=== PATIENT | male | born 1955 | race Caucasian/White ===

== ENCOUNTER 2018-05-07 13:38 | Day surgery (SDC) | payer BC, MEDICARE ==
[2018-05-04 11:45] LABS: EOSINOPHILS # (AUTO) 0.3 X10'3 (0-0.9); EOSINOPHILS % (AUTO) 6.3 % (0-6); HEMATOCRIT 43.5 % (42.0-52.0); HEMOGLOBIN 14.9 g/dl (14.0-17.9); LYMPHOCYTES # (AUTO) 1.2 X10'3 (1.1-4.8); LYMPHOCYTES % (AUTO) 26.1 % (21-51); MEAN CORPUSCULAR HEMOGLOBIN 33.6 PG (27.0-31.0); MEAN CORPUSCULAR HGB CONC 34.3 % (33.0-36.5); MEAN CORPUSCULAR VOLUME 97.9 FL (78-98); MEAN PLATELET VOLUME 7.3 FL (7.4-10.4); MONOCYTES # (AUTO) 0.5 X10'3 (0-0.9); MONOCYTES % (AUTO) 10.4 % (2-12); NEUTROPHILS # (AUTO) 2.6 X10'3 (1.8-7.7); NEUTROPHILS % (AUTO) 56.2 % (42-75); PLATELET COUNT 216 X10'3 (140-440); RED BLOOD COUNT 4.44 X10'6 (4.70-6.10); RED CELL DISTRIBUTION WIDTH 13.5 % (11.5-14.5); WHITE BLOOD COUNT 4.6 X10'3 (4.5-11.0)
[2018-05-04 12:04] LABS: INR 1.2 INR; PROTHROMBIN TIME 11.7 SECONDS (9.0-12.0)
[2018-05-04 12:05] LABS: PARTIAL THROMBOPLASTIN TIME 31 SECONDS (22-32)
[2018-05-04 12:25] LABS: ALBUMIN 3.8 G/DL (3.4-5.0); ANION GAP 11 (8-16); BLOOD UREA NITROGEN 14 MG/DL (7-18); BUN/CREATININE RATIO 16.1 (5.4-32.0); CHLORIDE 104 MMOL/L (99-107); CREATININE 0.87 MG/DL (0.60-1.10); GLUCOSE 100 MG/DL (70-104); POTASSIUM 4.4 MMOL/L (3.5-5.1); SODIUM 138 MMOL/L (135-145); TOTAL CARBON DIOXIDE 22.8 MMOL/L (24-32); eGFR 89 ML/MIN
[~2018-05-07] VITALS: Ht 188 cm; Wt 177.0 kg
[2018-05-07] VITALS (8 sets, daily range): BP systolic 119–148; BP diastolic 62–93
[2018-05-07] MEDS ORDERED: normal saline 1000ml 1,000 ML IV SCH (13:55)
[2018-05-07] MEDS ORDERED: LORazepam 0.5 MG tablet PO PRN (13:55)
[2018-05-07] MEDS ORDERED: diphenhydrAMINE 25mg capsule PO PRN (13:55)
[2018-05-07] MEDS ORDERED: LIDOcaine/PRILOcaine 5gm cream TP ONE (13:55)
[2018-05-07] MEDS ORDERED: ATOR40TA PO (14:19)
[2018-05-07] MEDS ORDERED: ALBU18HF2 INH (14:19)
[2018-05-07] MEDS ORDERED: LISI40TA4 PO (14:19)
[2018-05-07] MEDS ORDERED: SOTA80TA73 PO (14:19)
[2018-05-07] MEDS ORDERED: RIVA20TA PO (14:19)
[2018-05-07] MEDS ORDERED: OMEG1CAP2 (14:19)
[2018-05-07] MEDS ORDERED: TRAM50TA2 PO (14:19)
[2018-05-07] MEDS ORDERED: FLO0.4C PO (14:19)
[2018-05-07] MEDS ORDERED: AMLO10TA13 PO (14:19)
[2018-05-07] MEDS ORDERED: MULT-1172 (14:19)
[2018-05-07] MEDS ORDERED: BACL10TA2 PO (14:19)
[2018-05-07] MEDS ORDERED: GABA-530 PO (14:19)
[2018-05-07] MEDS ORDERED: TIOT4MIS3 (14:19)
[2018-05-07] MEDS ORDERED: LEVO150T8 PO (14:19)
[2018-05-07] MEDS ORDERED: midazolam 2 mg/2 ml injection ONE (17:04)
[2018-05-07] MEDS ORDERED: LIDOcaine 1% (10mg/ml)w/preservative injection 20ml MDV ONE (17:04)
[2018-05-07] MEDS ORDERED: fentaNYL/PF 50MCG/1 ML 2ML syringe ONE (17:04)
[2018-05-07] MEDS ORDERED: iohexol 350MG/ML 100ml bottle IV ONE (17:04)
[2018-05-07] MEDS ORDERED: verapamil 2.5 mg/ml inj IV ONE (17:09)
[2018-05-07] MEDS ORDERED: heparin 1,000unit/ml 10ml vial 10 ML ONE (17:10)
[2018-05-07] MEDS ORDERED: nitroGLYCERIN-Tridil 50MG/D5W 250 ML IV ONE (17:11)
[2018-05-07] MEDS ORDERED: HYDROcodone/acetaminophen 5mg/325mg tablet PO PRN (18:20)
[2018-05-07] MEDS ORDERED: HYDROcodone/acetaminophen 10/325mg tab PO PRN (18:20)
== END 2018-05-07 19:50 | disposition home or self-care (01) ==
LOC: SSTAY O 13:38
PROVIDERS: ATTEND Internal Medicine Interventional Cardiology
DX: I25.10 Atherosclerotic heart disease of native coronary artery without angina pectoris (principal); I10 Essential (primary) hypertension; G47.33 Obstructive sleep apnea (adult) (pediatric); I48.91 Unspecified atrial fibrillation; E66.9 Obesity, unspecified; E03.9 Hypothyroidism, unspecified; E78.5 Hyperlipidemia, unspecified; J44.9 Chronic obstructive pulmonary disease, unspecified; Z86.69 Personal history of other diseases of the nervous system and sense organs; Z86.73 Personal history of transient ischemic attack (TIA), and cerebral infarction without residual deficits; Z87.891 Personal history of nicotine dependence; Z68.43 Body mass index [BMI] 50.0-59.9, adult; Z96.641 Presence of right artificial hip joint; Z96.651 Presence of right artificial knee joint; Z79.891 Long term (current) use of opiate analgesic; Z79.899 Other long term (current) drug therapy; Z98.890 Other specified postprocedural states
CPT/HCPCS: 36415; 80048; 85025; 85610; 85730; 93005; 93458; 99152; A6257; J1644; J2001; J2250; J3010; J7030; Q0163; Q9967; A4620; C1769; J3490

== ENCOUNTER 2019-01-04 06:51 | Day surgery (SDC) | payer BC, MEDICARE ==
[2019-01-01 16:10] LABS: BASOPHILS # (AUTO) 0.1 X10'3 (0-0.2); EOSINOPHILS # (AUTO) 0.2 X10'3 (0-0.9); EOSINOPHILS % (AUTO) 3.1 % (0-6); LYMPHOCYTES # (AUTO) 1.3 X10'3 (1.1-4.8); LYMPHOCYTES % (AUTO) 21.2 % (21-51); MEAN CORPUSCULAR HEMOGLOBIN 33.5 PG (27.0-31.0); MEAN CORPUSCULAR VOLUME 98.7 FL (78-98); MEAN PLATELET VOLUME 7.3 FL (7.4-10.4); MONOCYTES # (AUTO) 0.7 X10'3 (0-0.9); MONOCYTES % (AUTO) 10.7 % (2-12); NEUTROPHILS # (AUTO) 4.1 X10'3 (1.8-7.7); PRE OP HEMATOCRIT 43.6 % (42.0-52.0); PRE OP HEMOGLOBIN 14.8 g/dL (14.0-17.9); PRE OP PLATELET COUNT 220 X10'3 (140-440); RED BLOOD COUNT 4.41 X10'6 (4.70-6.10); RED CELL DISTRIBUTION WIDTH 13.7 % (11.5-14.5)
[2019-01-01 16:26] LABS: PRE OP PROTIME 10.9 SECONDS (9.0-12.0)
[2019-01-01 16:40] LABS: ALBUMIN 3.8 G/DL (3.4-5.0); ALBUMIN/GLOBULIN RATIO 1.1 (1.1-1.5); ALKALINE PHOSPHATASE 48 IU/L (46-116); BLOOD UREA NITROGEN 18 MG/DL (7-18); CALCIUM 9.3 MG/DL (8.5-10.1); CHLORIDE 106 MMOL/L (99-107); PRE OP ALT 70 U/L (30-65); PRE OP ANION GAP 12 (8-16); PRE OP AST 30 U/L (10-37); PRE OP BILIRUB, TOTAL 0.4 MG/DL (0.0-1.0); PRE OP GLUCOSE 96 MG/DL (70-104); PRE OP POTASSIUM 4.4 MMOL/L (3.4-5.1); PRE OP SODIUM 142 MMOL/L (135-145); TOTAL CARBON DIOXIDE 23.9 MMOL/L (24-32); TOTAL PROTEIN 7.3 G/DL (6.4-8.2); eGFR 85 ML/MIN
[2019-01-04] VITALS (7 sets, daily range): BP systolic 111–134; BP diastolic 65–81
[~2019-01-04] VITALS: Ht 193 cm; Wt 183.0 kg
[~2019-01-04 06:51] MED LIST: ALBU18HF2 INH; AMLO10TA13 PO; ATOR40TA PO; BACL10TA2 PO; BUPIVAcaine/PF 2.5mg/ml (0.25%) 10ml vial ONE; DOCUMENT DATE & TIME OF BETA-BLOCKER PO ONE; ENOX80SY7 SUBCUT; FLO0.4C PO; GABA-530 PO; LEVO175T7 PO; LISI40TA4 PO; MULT-1172; OMEG1CAP2; RIVA20TA PO; SOTA80TA73 PO; TIOT4MIS3; TRAM50TA2 PO; ceFAZolin 1GM/D5W- ADD-VANTAGE 50 ML IV ONE; cefazolin/dext.iso 2gm/50ml 50 ML IV ONE; famotidine 20mg tablet PO ONE; ringers solution, lacted 1,000 ML IV SCH
[2019-01-04] MEDS ORDERED: LIDOcaine 1% (10mg/ml) 2ml vial ONE (07:24)
[2019-01-04] MEDS ORDERED: LIDOcaine 0.5% (5mg/ml) 50ml vial ONE (07:48)
[2019-01-04] MEDS ORDERED: midazolam 2 mg/2 ml injection ONE ×2 (09:49→10:02)
[2019-01-04] MEDS ORDERED: fentaNYL/PF 50MCG/1 ML 2ML syringe ONE (09:49)
--- NOTE | 2019-01-04 10:15 | NUR ---
Received from OR via BED, accompanied by Anesthesiologist DR KEY and report given by Anesthesiolgist. PATIENT A&OX4, DENIES PAIN, V/S WNL, NEUROVASCULAR CHECKS INTACT, 20G PIV RUE, SCD ON, DRESSING TO LEFT THUMB CDI ELEVATED WITH ICEBAG APPLIED.
--- NOTE | 2019-01-04 10:55 | NUR ---
PATIENT A&OX4, DENIES PAIN, V/S WNL, NEUROVASCULAR CHECKS INTACT, 20G PIV RUE D/C, SCD OFF, DRESSING TO LEFT THUMB CDI ELEVATED WITH ICEBAG APPLIED. I HAVE REVIEWED D/C INSTRUCTIONS WITH PATIENT AND FAMILY AND THEY HAVE VERBALIZED UNDERSTANDING. PATIENT D/C HOME WITH ALL BELONGINGS AND FAMILY GAVE TRANSPORT HOME.
== END 2019-01-04 10:55 | disposition home or self-care (01) ==
LOC: PAS 06:51
PROVIDERS: ATTEND Orthopaedic Surgery Hand Surgery
DX: D17.39 Benign lipomatous neoplasm of skin and subcutaneous tissue of other sites (principal); I10 Essential (primary) hypertension; I48.91 Unspecified atrial fibrillation; M19.90 Unspecified osteoarthritis, unspecified site; J44.9 Chronic obstructive pulmonary disease, unspecified; E66.9 Obesity, unspecified; Z68.43 Body mass index [BMI] 50.0-59.9, adult; Z87.891 Personal history of nicotine dependence; Z86.73 Personal history of transient ischemic attack (TIA), and cerebral infarction without residual deficits; Z98.890 Other specified postprocedural states; Z79.899 Other long term (current) drug therapy; Z72.89 Other problems related to lifestyle
CPT/HCPCS: 26111; 36415; 80053; 82948; 85025; 85610; 85730; 93005; J0690; J2001; J2250; J3010; J3490; J7120; A4215; A7000

== ENCOUNTER 2020-12-18 05:31 | Day surgery (SDC) | payer BC, MEDICARE ==
[2020-12-11 12:05] LABS: BASOPHILS # (AUTO) 0.1 X10'3 (0-0.2); BASOPHILS % (AUTO) 1.3 % (0-1); EOSINOPHILS # (AUTO) 0.2 X10'3 (0-0.9); EOSINOPHILS % (AUTO) 3.7 % (0-6); HEMATOCRIT 42.1 % (42.0-52.0); HEMOGLOBIN 14.6 g/dl (14.0-17.9); LYMPHOCYTES # (AUTO) 1.2 X10'3 (1.1-4.8); LYMPHOCYTES % (AUTO) 22.7 % (21-51); MEAN CORPUSCULAR HEMOGLOBIN 33.4 PG (27.0-31.0); MEAN CORPUSCULAR HGB CONC 34.6 g/dL (33.0-36.5); MEAN CORPUSCULAR VOLUME 96.5 FL (78-98); MEAN PLATELET VOLUME 7.2 FL (7.4-10.4); MONOCYTES # (AUTO) 0.5 X10'3 (0-0.9); MONOCYTES % (AUTO) 9.1 % (2-12); NEUTROPHILS # (AUTO) 3.4 X10'3 (1.8-7.7); NEUTROPHILS % (AUTO) 63.2 % (42-75); PLATELET COUNT 216 X10'3 (140-440); RED BLOOD COUNT 4.37 X10'6 (4.70-6.10); RED CELL DISTRIBUTION WIDTH 14.2 % (11.5-14.5); WHITE BLOOD COUNT 5.4 X10'3 (4.5-11.0)
[2020-12-11 12:27] LABS: ALANINE AMINOTRANSFERASE 49 U/L (12-78); ALBUMIN 4.1 G/DL (3.4-5.0); ALBUMIN/GLOBULIN RATIO 1.2 (1.1-1.5); ALKALINE PHOSPHATASE 69 IU/L (46-116); ANION GAP 14 (8-16); ASPARTATE AMINO TRANSFERASE 26 U/L (10-37); BILIRUBIN,TOTAL 0.7 MG/DL (0.1-1.0); BLOOD UREA NITROGEN 15 MG/DL (7-18); BUN/CREATININE RATIO 15.6 (5.4-32.0); CALCIUM 9.2 MG/DL (8.5-10.1); CHLORIDE 104 MMOL/L (99-107); CREATININE 0.96 MG/DL (0.60-1.10); GLUCOSE 102 MG/DL (70-104); POTASSIUM 4.3 MMOL/L (3.5-5.1); SODIUM 140 MMOL/L (135-145); TOTAL PROTEIN 7.4 G/DL (6.4-8.2); eGFR 79 ML/MIN
[~2020-12-18] VITALS: Ht 188 cm; Wt 180.9 kg
[2020-12-18] VITALS (8 sets, daily range): BP systolic 93–114; BP diastolic 53–81
[~2020-12-18 05:31] MED LIST changes: -BUPIVAcaine/PF 2.5mg/ml (0.25%) 10ml vial ONE; +CHOL4PAC2 PO; -ENOX80SY7 SUBCUT; +LISI40TA13 PO; -LISI40TA4 PO; -MULT-1172; +NYSPWD TP; -OMEG1CAP2; +TIOT4MIS3 INH; -TRAM50TA2 PO; +[UNRECOGNIZED DRUG - REMARK] TOP; +albuterol 2.5 MG/3 ML nebule NEB ONE; -ceFAZolin 1GM/D5W- ADD-VANTAGE 50 ML IV ONE; +cefazolin/dext.iso 2gm/100ml IV ONE; -cefazolin/dext.iso 2gm/50ml 50 ML IV ONE
[2020-12-18] MEDS ORDERED: BUPIVAcaine/PF 2.5mg/ml (0.25%) 10ml vial ONE (06:45)
[2020-12-18] MEDS ORDERED: ceFAZolin/D5W- 1GM premix 50 ML IV ONE (06:55)
[2020-12-18] MEDS ORDERED: LIDOcaine 0.5% (5mg/ml) 50ml vial ONE (07:01)
[2020-12-18] MEDS ORDERED: ringers solution, lacted 1,000 ML IV SCH (07:05)
[2020-12-18] MEDS ORDERED: ondansetron/PF 4mg/2ml inj IV PRN (07:05)
[2020-12-18] MEDS ORDERED: labetalol 20mg/4ml (5mg/ml) syringe IV PRN (07:05)
[2020-12-18] MEDS ORDERED: morphine 4 MG/ML inj SYRINge IV PRN (07:05)
[2020-12-18] MEDS ORDERED: morphine 2 MG/ML inj. syringe IV PRN (07:05)
[2020-12-18] MEDS ORDERED: hydrALAZINE 20mg/ml inj. IV PRN (07:05)
[2020-12-18] MEDS ORDERED: fentaNYL/PF 50MCG/1 ML 2ML syringe IV PRN ×2 (07:05)
[2020-12-18] MEDS ORDERED: fentaNYL/PF 50MCG/1 ML 2ML syringe ONE (07:09)
[2020-12-18] MEDS ORDERED: MIDAZolam 1mg/ml 10ml vial ONE (07:09)
--- NOTE | 2020-12-18 07:30 | NUR ---
ADMITTED TO PACU FROM OR ACCOMPANIED BY ANESTHESIA. INTIAL PHYSICAL ASSESSMENT DONE AND RECORDED. REPORT RECEIVED FROM ANESTHESIA.
--- NOTE | 2020-12-18 08:30 | NUR ---
DISCHARGE CRITERIA MET, DISCHARGE INSTRUCTIONS GIVEN, DEMONSTRATES VERBAL UNDERSTANDING. DISCHARGED HOME IN GOOD CONDITION.
== END 2020-12-18 08:30 | disposition home or self-care (01) ==
LOC: PAS 05:31
PROVIDERS: ATTEND Orthopaedic Surgery Hand Surgery
DX: G56.02 Carpal tunnel syndrome, left upper limb (principal); E66.01 Morbid (severe) obesity due to excess calories; Z68.43 Body mass index [BMI] 50.0-59.9, adult; M19.072 Primary osteoarthritis, left ankle and foot; M19.012 Primary osteoarthritis, left shoulder; I48.91 Unspecified atrial fibrillation; J44.9 Chronic obstructive pulmonary disease, unspecified; G47.30 Sleep apnea, unspecified; E03.9 Hypothyroidism, unspecified; N40.0 Benign prostatic hyperplasia without lower urinary tract symptoms; Z98.890 Other specified postprocedural states; Z72.89 Other problems related to lifestyle; Z87.891 Personal history of nicotine dependence; Z20.822 Contact with and (suspected) exposure to COVID-19; Z79.899 Other long term (current) drug therapy; Z96.641 Presence of right artificial hip joint
CPT/HCPCS: 29848; 36415; 71046; 80053; 82948; 85025; J2001; J2250; J3010; J3490; U0003; U0005; Z7506; Z7512; A4215; A7000; J7120

== ENCOUNTER → 2021-01-15 | Day surgery (SDC) | payer BC, MEDICARE ==
[2021-01-08 11:48] LABS: BASOPHILS # (AUTO) 0.1 X10'3 (0-0.2); BASOPHILS % (AUTO) 1.6 % (0-1); EOSINOPHILS # (AUTO) 0.1 X10'3 (0-0.9); EOSINOPHILS % (AUTO) 2.9 % (0-6); LYMPHOCYTES # (AUTO) 1.2 X10'3 (1.1-4.8); LYMPHOCYTES % (AUTO) 24.7 % (21-51); MEAN CORPUSCULAR HEMOGLOBIN 33.9 PG (27.0-31.0); MEAN CORPUSCULAR HGB CONC 34.7 g/dL (33.0-36.5); MEAN CORPUSCULAR VOLUME 97.7 FL (78-98); MEAN PLATELET VOLUME 6.9 FL (7.4-10.4); MONOCYTES # (AUTO) 0.5 X10'3 (0-0.9); MONOCYTES % (AUTO) 9.8 % (2-12); PRE OP HEMATOCRIT 42.5 % (42.0-52.0); PRE OP HEMOGLOBIN 14.7 g/dL (14.0-17.9); PRE OP PLATELET COUNT 206 X10'3 (140-440); RED BLOOD COUNT 4.35 X10'6 (4.70-6.10); RED CELL DISTRIBUTION WIDTH 14.5 % (11.5-14.5)
[2021-01-08 12:01] LABS: PARTIAL THROMBOPLASTIN TIME 34 SECONDS (22-32); PRE OP INR 1.3 INR; PRE OP PROTIME 12.9 SECONDS (9.0-12.0)
[2021-01-08 12:02] LABS: ALBUMIN 3.9 G/DL (3.4-5.0); ALKALINE PHOSPHATASE 66 IU/L (46-116); BLOOD UREA NITROGEN 20 MG/DL (7-18); BUN/CREATININE RATIO 19.8 (5.4-32.0); CALCIUM 9.5 MG/DL (8.5-10.1); CHLORIDE 105 MMOL/L (99-107); CREATININE 1.01 MG/DL (0.60-1.10); PRE OP ALT 60 U/L (30-65); PRE OP ANION GAP 14 (8-16); PRE OP AST 39 U/L (10-37); PRE OP BILIRUB, TOTAL 0.5 MG/DL (0.0-1.0); PRE OP GLUCOSE 92 MG/DL (70-104); PRE OP POTASSIUM 4.6 MMOL/L (3.4-5.1); PRE OP SODIUM 142 MMOL/L (135-145); TOTAL CARBON DIOXIDE 23.1 MMOL/L (24-32); TOTAL PROTEIN 7.7 G/DL (6.4-8.2); eGFR 74 ML/MIN
[~2021-01-15] VITALS: Ht 188 cm; Wt 179.7 kg
[~2021-01-15] MED LIST changes: -ALBU18HF2 INH; +ALBU8HFA INH; +BUPIVAcaine/PF 2.5mg/ml (0.25%) 10ml vial ONE; -GABA-530 PO; +GABA300C PO; +LIDOcaine 0.5% (5mg/ml) 50ml vial ONE; +MIDAZolam 1 MG/ML 5ML VIAL ONE; -TIOT4MIS3; -albuterol 2.5 MG/3 ML nebule NEB ONE; +ceFAZolin inj. 3,000 MG in normal saline 100ml IV soln 100 ML IV ONE; -cefazolin/dext.iso 2gm/100ml IV ONE; +fentaNYL/PF 50MCG/1 ML 2ML syringe ONE; +ketamine 50mg/5ml syringe ONE
[2021-01-15 06:00] VITALS: BP 129/75
[2021-01-15 07:49] VITALS: BP 124/82
--- NOTE | 2021-01-15 07:49 | NUR ---
Received from OR via [facility] , accompanied by Anesthesiologist JODI and report given by Anesthesiolgist. 20G PIV IN LET DONNA RUNNING LR AT 100. DENIES PAIN RIGHT WRIST DRESSING CDI AND ICE WAS DONNED UPON ARRIVAL. VSS. DENIES PAIN. + CAP REFILL TO ALL FINGERS AND THUMB. Addendum: 01/15/21 at 4499 by Ryan Dumont RN, RN Amended: Links added.
[2021-01-15 07:59] VITALS: BP 125/81
[2021-01-15 08:09] VITALS: BP 124/78
--- NOTE | 2021-01-15 08:19 | NUR ---
Report called to receiving nurse. Transferred via WHEELCHAIR TO PERSONAL VEHICLE. SPOUSE DROVE PATIENT HOME WITH Belongings . Special Issues communicated to . VSS. DRESSING CDI AND PATIENT DENIES PAIN. Addendum: 01/15/21 at 0827 by Ryan Dumont RN, RN Amended: Links added.
== END | disposition home or self-care (01) ==
LOC: PAS 05:41
PROVIDERS: ATTEND Orthopaedic Surgery Hand Surgery
DX: G56.01 Carpal tunnel syndrome, right upper limb (principal); J44.9 Chronic obstructive pulmonary disease, unspecified; I10 Essential (primary) hypertension; I48.91 Unspecified atrial fibrillation; E03.9 Hypothyroidism, unspecified; M19.90 Unspecified osteoarthritis, unspecified site; G47.33 Obstructive sleep apnea (adult) (pediatric); E66.01 Morbid (severe) obesity due to excess calories; Z68.43 Body mass index [BMI] 50.0-59.9, adult; M19.071 Primary osteoarthritis, right ankle and foot; M19.072 Primary osteoarthritis, left ankle and foot; Z98.890 Other specified postprocedural states; Z79.01 Long term (current) use of anticoagulants; Z79.899 Other long term (current) drug therapy; Z20.822 Contact with and (suspected) exposure to COVID-19; Z87.891 Personal history of nicotine dependence; Z72.89 Other problems related to lifestyle; Z96.641 Presence of right artificial hip joint
CPT/HCPCS: 29848; 36415; 80053; 82948; 85025; 85610; 85730; J0690; J2001; J2250; J3010; J3490; U0003; U0005; Z7506; Z7512; A4215; A7000; J7120